=== PATIENT | male | born 1990 | race Caucasian/White ===

== ENCOUNTER 2019-10-07 09:21 | Emergency (ER) | payer OTHER ==
[2019-10-07 09:39] VITALS: BP 120/71; PULSE 90; TEMP 98.1; BMI 30.2
--- NOTE | 2019-10-07 09:46 | PDOC ---
History of Present Illness <Maida Nur - Last Filed: 10/07/19 11:55> - General History Source: Patient Exam Limitations: No Limitations <Mike Narvaez - Last Filed: 10/07/19 12:01> - General Chief Complaint: Chest Pain Stated Complaint: CHEST PAIN Time Seen by Provider: 10/07/19 09:44 - History of Present Illness Initial Comments: Chavez Powers is a homeless 29 yo M w a hx of polysubstance abuse, [place] after using cocaine in 2010, and asthma who presents to the ER demanding for food and water. He also states he has left lower chest pain which hurts when he pushes on his chest or moves his left arm. He states he had a heart attack in 2010 after using cocaine but denies using cocaine or other drugs today. He also states the pain he felt when he had a heart attack in 2010 is completely different than the pain she currently feels at the present time. In 2010 his pain was heavy and pressurelike. Today it is sharp and worse with palpation. The pain today is not worse with physical activity and not associated with nausea, vomiting, diaphoresis or radiation. PCP: None Social Hx: Uses cocaine, alcohol, crack - homeless PSH: Denies Allergies: Fish containing products. (Mike Narvaez) Past History <Maida Nur - Last Filed: 10/07/19 11:55> - Psycho Social/Smoking Cessation Hx Smoking History: Never smoked Information on smoking cessation initiated: No Hx Alcohol Use: No Drug/Substance Use Hx: No <Mike Narvaez - Last Filed: 10/07/19 12:01> - Past Medical History Allergies/Adverse Reactions: Allergies Allergy/AdvReac Type Severity Reaction Status Date / Time Fish Containing Products Allergy Swelling Verified 10/07/19 09:33 Review of Systems <Maida Nur - Last Filed: 10/07/19 11:55> - Review of Systems Able to Perform ROS?: Yes <Mike Narvaez - Last Filed: 10/07/19 12:01> - Review of Systems Comments:: CONSTITUTIONAL: Absent: fever, no chills, no fatigue EYES: Absent: visual changes ENT: Absent: ear pain, no sore throat CARDIOVASCULAR: Present: chest pain, palpitations RESPIRATORY: Absent: cough, no SOB GI: Absent: abdominal pain, no nausea, no vomiting, no constipation, no diarrhea GENITOURINARY: Absent: dysuria, no frequency, no hematuria MUSKULOSKELETAL: Absent: back pain, no arthralgia, no myalgia SKIN: Absent: rash NEURO: Absent: headache (Mike Narvaez) *Physical Exam <Maida Nru Molly - Last Filed: 10/07/19 11:55> <Mike Narvaez - Last Filed: 10/07/19 12:01> - Vital Signs Last Vital Signs Temp Pulse Resp BP Pulse Ox 98.1 F 90 16 120/71 99 10/07/19 09:33 10/07/19 09:33 10/07/19 09:33 10/07/19 09:33 10/07/19 09:33 - Physical Exam GENERAL: Well-appearing, well-nourished. No apparent distress. HEENT: Normocephalic, atraumatic. PERRL, EOM intact. CARDIOVASCULAR: Normal S1, S2. Regular rate and rhythm. PULMONARY: No evidence of respiratory distress. Lungs clear to auscultation bilaterally. No wheezing, rales or rhonchi. ABDOMEN: Soft, non-distended, non-tender. EXTREMITIES: Normal ROM in all four extremities. No gross deformities. SKIN: Warm, dry. No rash NEUROLOGICAL: No focal neurological deficits. (Mike Narvaez) ED Treatment Course - LABORATORY CBC & Chemistry Diagram: 10/07/19 10:50 10/07/19 10:50 <Maida Nur - Last Filed: 10/07/19 11:55> - LABORATORY CBC & Chemistry Diagram: 10/07/19 10:50 10/07/19 10:50 <Mike Narvaez - Last Filed: 10/07/19 12:01> - ADDITIONAL ORDERS Additional order review: Laboratory Results 10/07/19 10/07/19 10:50 10:50 Sodium 142 Potassium 4.0 Chloride 108 H Carbon Dioxide 29 Anion Gap 5 L BUN 16.6 Creatinine 0.9 Est GFR (CKD-EPI)AfAm 135.19 Est GFR (CKD-EPI)NonAf 116.64 Random Glucose 113 H Calcium 8.7 Total Bilirubin 0.4 AST 12 L ALT 23 Alkaline Phosphatase 65 Troponin I 0.02 Total Protein 5.9 L Albumin 3.2 L 10/07/19 10:50 RBC 4.05 MCV 87.4 MCHC 33.6 RDW 14.2 MPV 8.3 Neutrophils % 64.3 Lymphocytes % 27.6 Monocytes % 5.6 Eosinophils % 1.7 Basophils % 0.8 - Medications Given in the ED: ED Medications Discontinued Medications Generic Name Dose Route Start Last Admin Trade Name Joe PRN Reason Stop Dose Admin Ibuprofen 600 mg 10/07/19 10:09 10/07/19 11:29 Motrin - PO 10/07/19 10:10 600 mg ONCE ONE Administration Medical Decision Making <Maida Nur - Last Filed: 10/07/19 11:55> <Mike Narvaez - Last Filed: 10/07/19 12:01> - Medical Decision Making Chavez Powers is a homeless 29 yo M w a hx of polysubstance abuse, [place] after using cocaine in 2010, and asthma who presents to the ER demanding for food and water. He also states he has left lower chest pain which hurts when he pushes on his chest or moves his left arm. He states he had a heart attack in 2010 after using cocaine but denies using cocaine or other drugs today. He also states the pain he felt when he had a heart attack in 2010 is completely different than the pain she currently feels at the present time. In 2010 his pain was heavy and pressurelike. Today it is sharp and worse with palpation. The pain today is not worse with physical activity and not associated with nausea, vomiting, diaphoresis or radiation. Vital Signs Temp Pulse Resp BP Pulse Ox 98.1 F 90 16 120/71 99 10/07/19 09:33 10/07/19 09:33 10/07/19 09:33 10/07/19 09:33 10/07/19 09:33 DDx IBNLT: ACS, arrythmia, pneumothorax, PNA, electrolyte/metabolic disturbance Plan: EKG, labs, CXR, analgesia, oral hydration and food EKG: NS rate of 85, narrow complex, normal axis, no hypertrophy, no ST elevation or depression, QTc 406, ME 154 Labs: Trop negative Re-assessment: Patient no longer has chest pain and requests to be discharged but insists that the hospital supply him with a metrocard so he can get to the [place]. Dispo: Home (Mike Narvaez) Discharge - Discharge Information Problems reviewed: Yes - Admission No <Maida Nur - Last Filed: 10/07/19 11:55> - Discharge Information Problems reviewed: Yes - Admission No <RevakasiMike - Last Filed: 10/07/19 12:01> - Discharge Information Clinical Impression/Diagnosis: Chest pain Qualifiers: Chest pain type: unspecified Qualified Code(s): R07.9 - Chest pain, unspecified Condition: Good Disposition: HOME - Follow up/Referral Referrals: [facility] [Provider Group] [facility] [Provider Group] - Patient Discharge Instructions Patient Printed Discharge Instructions: DI for Chest Pain Additional Instructions: 1) Please follow-up with your primary care doctor in the next 1-2 days. Please call tomorrow for for any urgent issues. referrals have been given 2) You were given a copy of the tests performed today. Please bring the results with you and review them with your primary care doctor. Your laboratory results were normal, you declined your x ray which is not necessarily needed at this time as you do not have respiratory changes or vital sign changes 3) If you have any worsening of symptoms or any other concerns please return to the ED immediately. Return if worsening symptoms including fevers, headache, vomiting, visual or hearing disturbances, abdominal pain, chest pain, shortness of breath, syncope, dehydration, inability to take things by mouth/vomiting, altered mental status, or worsening concerning symptoms. 4) Please continue taking your home medications as directed stop taking drugs that could cause harm on your body and heart Stay well hydrated and rest adequately. Make an appointment. If you cannot follow-up with your primary care doctor please return to the ED Print Language: BHUTANESE
--- NOTE | 2019-10-07 10:01 | PDOC ---
Attending Attestation - Resident Resident Name: Mike Narvaez - ED Attending Attestation I have performed the following: I have examined & evaluated the patient, The case was reviewed & discussed with the resident, I agree w/resident's findings & plan - HPI HPI: 10/07/19 10:26 29 yo M w a hx of polysubstance abuse, [place] after using cocaine in 2010 (no stents ), and asthma who presents to the ER demanding for food and water. He also states he has left lower chest pain which hurts when he pushes on his chest or moves his left arm. He states he had a heart attack in 2010 after using cocaine but denies using cocaine or other drugs today. He also states the pain he felt when he had a heart attack in 2010 is completely different than the pain she currently feels at the present time. In 2010 his pain was heavy and pressure- like. Today it is sharp and worse with palpation. The pain today is not worse with physical activity and not associated with nausea, vomiting, diaphoresis or radiation. 10/07/19 11:36 - Physicial Exam PE: 10/07/19 10:01 Agree with the resident's HPI and PE as documented in the electronic medical record. NAD, well appearing, sleeping comfortably, EOMI, PERRL, nl conjunctiva, anicteric; neck supple. lungs clear, +reproducible CP, point tenderness to left chest. RRR, no murmur, abdomen soft nontender. no rebound, guarding. Back nontender. ROSE x4, no focal neuro deficits. No peripheral edema. normal color for ethnicity, WWP. 10/07/19 11:35 10/07/19 12:09 10/07/19 12:10 - Medical Decision Making 10/07/19 09:56 Vital Signs Temp Pulse Resp BP Pulse Ox 98.1 F 90 16 120/71 99 10/07/19 09:33 10/07/19 09:33 10/07/19 09:33 10/07/19 09:33 10/07/19 09:33 DDx chest pain: ACS, coronary vasospasm, NSTEMI, arrhythmia, unstable angina, PE , dissection, PUD, esophageal spasm, GERD, gastritis, costochondritis, pneumonia , pleurisy, pericarditis/myocarditis. dehydration, electrolyte/metabolic derangements. Considered but clinically doubt based on HPI and PE: Low suspicion for pulmonary embolism or dissection. EKG normal sinus rhythm, no interval abnormalities, narrow QRS, ST and T wave segments and morphology normal. Chest pain HEART score 1 which denotes Low risk and probability for ACS, less than 1.7% risk for MACE at 4-6 wks no prior stents, prior likely cor vasospasm from prior cocaine use today denies cocaine or drug use labs and lytes wnl, including troponin, unlikely cardiac/ACS cxr declined, which is appropriate, as pt without respiratory distress or sx. clear lungs, normal CVS exam and VS wnl, reassuring, so doubt infectious/pulm edema/dissection or effusion or mass no wheezing. No evidence of ACS, pericarditis, myocarditis, pulmonary embolism, pneumothorax , pneumonia, Zoster, or esophageal perforation. Historically not abrupt in onset , tearing or ripping, pulses symmetric, no evidence of aortic dissection. Pt to be discharged in stable condition, required upscale security officer as he became aggressive and verbally abusive to staff. Patient made aware of clinical impression, treatment recommendations and disposition plan, return precautions discussed (including but not limited to new or persistent/worsening symptoms, pain, fevers, or signs of infection, chest pain, respiratory distress, inability to tolerate oral intake, dehydration, syncope, or neurologic changes) . Follow up with PMD referral to the clinic given/ as recommended, follow up information provided, take medications as instructed for duration of time. continue with supportive care, avoid triggers and precipitants. All questions answered to patient's satisfaction and expressed understanding and comfort with this. At the time of discharge, the patient is alert, clinically improved, tolerating po and verbalizes understanding of instructions, satisfied with the care received and felt comfortable with the plan. Patient does not suffer from an acute life-threatening medical condition at this time and is safe for outpatient follow-up. 10/07/19 11:36 10/07/19 12:10 Heart Score/ECG Review - History History: Slightly suspicious - Electrocardiogram EKG: Normal - Age Age: </= 45 - Risk Factors Risk Factors Heart Score: Yes Smoking History Based on the list above the patient has:: 1-2 risk factors - Troponin Troponin: </= normal limit - Score Heart Score - Total: 1 #1 ECG reviewed & interpreted by me at: 09:35 General ECG Interpretation: Sinus Rhythm, Normal Rate, Normal Intervals 10/07/19 09:56 EKG normal sinus rhythm 85 bpm, no interval abnormalities, narrow QRS, ST and T wave segments and morphology normal.
[2019-10-07] MEDS ORDERED: IBUPROFEN 600 MG TABLET (FP) PO ONE ×2 (10:09→11:05)
[2019-10-07 11:08] LABS: BASO % 0.8 % (0-2.0); EOS % 1.7 % (0-4.5); HEMATOCRIT 35.4 % (35.4-49); HEMOGLOBIN 11.9 GM/dL (11.7-16.9); LYMPH % 27.6 % (8-40); MCH 29.4 pg (25.7-33.7); MCHC 33.6 g/dl (32.0-35.9); MEAN CELL VOLUME 87.4 fl (80-96); MEAN PLT VOLUME 8.3 fl (7.5-11.1); MONO % 5.6 % (3.8-10.2); NEUT % 64.3 % (42.8-82.8); PLATELET COUNT 258 K/MM3 (134-434); RBC 4.05 M/mm3 (4.00-5.60); RDW 14.2 % (11.9-15.9); WHITE BLOOD COUNT 12.3 K/mm3 (4.0-10.0)
[2019-10-07 11:30] LABS: ALBUMIN 3.2 g/dl (3.4-5.0); BILIRUBIN,TOTAL 0.4 mg/dL (0.2-1); BLOOD UREA NITROGEN 16.6 mg/dL (7-18); CALCIUM 8.7 mg/dL (8.5-10.1); CREATININE 0.9 mg/dL (0.55-1.3); TOT PROT 5.9 g/dl (6.4-8.2)
--- NOTE | 2019-10-08 12:10 | EKG ---
Test Reason : Blood Pressure : / mmHG Vent. Rate : 085 BPM Atrial Rate : 085 BPM P-R Int : 154 ms QRS Dur : 092 ms QT Int : 342 ms P-R-T Axes : 051 057 041 degrees QTc Int : 406 ms NORMAL SINUS RHYTHM NORMAL ECG NO PREVIOUS ECGS AVAILABLE Confirmed by DARLIN MOSHER MD ([id number]) on 10/08/2019 12:10:23 PM Referred By: Confirmed By:DARLIN MOSHER MD
== END 2019-10-07 12:08 | disposition home or self-care (01) ==
LOC: JER 09:21
DX: R07.9 Chest pain, unspecified (principal); F19.10 Other psychoactive substance abuse, uncomplicated; F10.10 Alcohol abuse, uncomplicated; F14.10 Cocaine abuse, uncomplicated; I25.2 Old myocardial infarction; J45.909 Unspecified asthma, uncomplicated; Z59.0 Homelessness; Z91.013 Allergy to seafood
CPT/HCPCS: 36415; 80053; 84484; 85025; 93005; 93010; 99285-25